=== PATIENT | male | born 1965 | race Caucasian/White ===

== ENCOUNTER 2018-04-20 13:58 | Inpatient (IN) | payer OTHER ==
[~2018-04-20] VITALS: Ht 172.7 cm; Wt 73.6 kg
[2018-04-20] MEDS ORDERED: SODIUM CHLORIDE 0.9% 1,000ML IVBOLUS ONE ×2 (14:30→17:00)
[2018-04-20] MEDS ORDERED: AMPICILLIN/SULBACTAM 3 GM in SODIUM CHLORIDE 0.9% 100 ML IV ONE (14:30)
[2018-04-20] MEDS ORDERED: SODIUM CHLORIDE FLUSH 10ML SYR IVF ONE (14:30)
[2018-04-20 15:00] LABS: MEAN CORPUSCULAR HEMOGLOBIN 29.2 pg (27.5-34.5); MEAN CORPUSCULAR HGB CONC 33.3 g/dL (33.2-36.2); MEAN CORPUSCULAR VOLUME 87.6 fL (81-97); PLATELET COUNT 311 x10^3/uL (130-400); RED BLOOD COUNT 4.37 x10^6/uL (4.38-5.82); RED CELL DISTRIBUTION WIDTH 17.1 % (9.4-14.8)
[2018-04-20] MEDS ORDERED: ACETAMINOPHEN 325 MG TABLET PO ONE (15:00)
[2018-04-20] MEDS ORDERED: PLEASE ENTER ALLERGIES MC SCH (15:00)
[2018-04-20 15:11] LABS: ALANINE AMINOTRANSFERASE 32 U/L (12-78); ALBUMIN 2.4 g/dL (3.4-5.0); ANION GAP 9 mmol/L (5-15); CALCIUM 9.4 mg/dL (8.5-10.1); CHLORIDE 96 mmol/L (98-107)
[2018-04-20 15:14] LABS: ALKALINE PHOSPHATASE 92 U/L (45-117); BILIRUBIN,TOTAL 0.8 mg/dL (0.2-1.0); CREATININE 1.04 mg/dL (0.7-1.3); TOTAL PROTEIN 7.1 g/dL (6.4-8.2)
[2018-04-20] MEDS ORDERED: IBUPROFEN 200 MG TABLET ONE (15:18)
[2018-04-20] MEDS ORDERED: IBUPROFEN 200 MG TABLET PO ONE (15:30)
[2018-04-20] MEDS ORDERED: VANCOMYCIN PER PHARMACY MC PRN ×2 (15:30→16:30)
[2018-04-20] MEDS ORDERED: VANCOMYCIN 1,600 MG in SODIUM CHLORIDE 0.9% 250 ML IV ONE (15:30)
[2018-04-20] MEDS ORDERED: METHADONE PO (15:31)
[2018-04-20] MEDS ORDERED: ASPI-621 PO (15:31)
[2018-04-20] MEDS ORDERED: CLON2TAB PO (15:31)
[2018-04-20] MEDS ORDERED: QUET400T4 PO (15:31)
[2018-04-20 15:37] LABS: INTERNATIONAL NORMALIZED RATIO 1.2 (0.93-1.1)
[2018-04-20 15:38] LABS: PROTHROMBIN TIME 12.4 Seconds (9.6-11.5)
[2018-04-20 15:39] LABS: MD YES
[2018-04-20 15:44] LABS: BAND#(MANUAL) 4.13 x10^3/uL; BANDS%(MANUAL) 14 % (0-7); LYMPH#(MANUAL) 0.89 x10^3/uL (1-3.4); LYMPHS% (MANUAL) 3 % (22-44); SEGS% (MANUAL) 80 % (42-75)
[2018-04-20 15:45] LABS: MONOS#(MANUAL) 0.89 x10^3/uL (0.3-2.7); MONOS% (MANUAL) 3 % (2-9)
[2018-04-20 15:47] LABS: <PLATELET ESTIMATE> ADEQUATE; <PLT MORPHOLOGY> NORMAL PLT MORPH; ANISOCYTOSIS 1+; PMNS WITH VACUOLES 1+; TOXIC GRAN 1+
[2018-04-20] MEDS ORDERED: OMNIPAQUE 350 MG/ML, 100ML BOTTLE ONE (16:15)
[2018-04-20] MEDS ORDERED: LABETALOL 5MG/ML, 20ML IVPush PRN (16:30)
[2018-04-20] MEDS ORDERED: BISACODYL 10 MG SUPP PR PRN (16:30)
[2018-04-20] MEDS ORDERED: POLYETHYLENE GLYCOL 17 GM PACKET PO PRN (16:30)
[2018-04-20] MEDS ORDERED: ONDANSETRON ODT 4 MG PO PRN (16:30)
[2018-04-20] MEDS ORDERED: DOCUSATE 100 MG CAPSULE PO PRN (16:30)
[2018-04-20] MEDS ORDERED: METHADONE 40 MG TABLET.SOL PO PRN (16:30)
[2018-04-20] MEDS ORDERED: ONDANSETRON 2MG/ML, 2ML IVPush PRN (16:30)
[2018-04-20] MEDS ORDERED: hydrALAzine 20 MG/ML, 1ML IVPush PRN (16:30)
[2018-04-20 17:03] LABS: HEMOGLOBIN A1C 6.2 % (4.2-6.3)
[2018-04-20] MEDS ORDERED: PHARMACOKINETIC CONSULTATION MC ONE (18:00)
[2018-04-20] MEDS ORDERED: PHARMACOKINETIC MONITORING MC PRN (18:00)
[2018-04-20] MEDS: NOREPINEPHRINE 4 MG in SODIUM CHLORIDE 0.9% 246 ML IV PRN (18:20)
[2018-04-20] MEDS ORDERED: SODIUM CHLORIDE 0.9% 1,000 ML IV ONE (19:00)
[2018-04-20] MEDS ORDERED: HEPARIN 5,000 UNITS/ML, 1ML ONE (19:50)
[2018-04-20] MEDS ORDERED: NICOTINE 14MG/24 HR PATCH.TD24 ONE (19:50)
[2018-04-20] MEDS: NICOTINE 14MG/24 HR PATCH.TD24 TD SCH (19:51)
[2018-04-20] MEDS: HEPARIN 5,000 UNITS/ML, 1ML SQ SCH (19:51)
[2018-04-20] MEDS: AMPICILLIN/SULBACTAM 3 GM in SODIUM CHLORIDE 0.9% 100 ML IV SCH (22:22)
[2018-04-20] MEDS: QUETIAPINE 200 MG TABLET PO SCH (22:24)
[2018-04-21] MEDS: SODIUM CHLORIDE 0.9% 1,000 ML IV SCH ×4 (01:04→21:22)
[2018-04-21] MEDS: HEPARIN 5,000 UNITS/ML, 1ML SQ SCH ×2 (01:49→09:21)
[2018-04-21] MEDS: AMPICILLIN/SULBACTAM 3 GM in SODIUM CHLORIDE 0.9% 100 ML IV SCH ×4 (03:18→21:22)
[2018-04-21 04:00] VITALS: BP 95/65
[2018-04-21 04:23] LABS: MEAN CORPUSCULAR HEMOGLOBIN 29.6 pg (27.5-34.5); MEAN CORPUSCULAR HGB CONC 33.7 g/dL (33.2-36.2); MEAN CORPUSCULAR VOLUME 87.7 fL (81-97); MEAN PLATELET VOLUME 7.9 fL (7.4-10.4); PLATELET COUNT 267 x10^3/uL (130-400); RED BLOOD COUNT 3.71 x10^6/uL (4.38-5.82); RED CELL DISTRIBUTION WIDTH 16.8 % (9.4-14.8)
[2018-04-21 04:24] LABS: MD YES
[2018-04-21 04:35] LABS: <PLATELET ESTIMATE> ADEQUATE; <PLT MORPHOLOGY> NORMAL PLT MORPH; <RBC MORPHOLOGY> NORMAL; ANION GAP 4 mmol/L (5-15); BAND#(MANUAL) 3.41 x10^3/uL; BANDS%(MANUAL) 16 % (0-7); CALCIUM 7.7 mg/dL (8.5-10.1); CHLORIDE 110 mmol/L (98-107); CREATININE 0.75 mg/dL (0.7-1.3); LYMPH#(MANUAL) 0.43 x10^3/uL (1-3.4); LYMPHS% (MANUAL) 2 % (22-44); MONOS#(MANUAL) 0.64 x10^3/uL (0.3-2.7); MONOS% (MANUAL) 3 % (2-9); SEG#(MANUAL) 16.83 x10^3/uL (1.8-6.8); SEGS% (MANUAL) 79 % (42-75)
[2018-04-21] MEDS ORDERED: CATHFLO-ALTEPLASE 2 MG/2 ML CATHFLUSH ONE (06:00)
[2018-04-21] MEDS: NOREPINEPHRINE 4 MG in SODIUM CHLORIDE 0.9% 246 ML IV PRN ×2 (06:46→17:48)
[2018-04-21] MEDS: ASPIRIN 81 MG TABLET EC PO SCH (09:20)
[2018-04-21] MEDS: CLINDAMYCIN PMX 900MG/50ML 50 ML IV SCH ×2 (12:39→20:54)
[2018-04-21] MEDS ORDERED: HEPARIN 5,000 UNITS/ML, 1ML IV ONE (13:30)
[2018-04-21] MEDS: VANCOMYCIN 1,500 MG in SODIUM CHLORIDE 0.9% 250 ML IV SCH (13:31)
[2018-04-21] MEDS: HEPARIN 25,000 UNITS/500ML PMX 500 ML IV PRN (13:50)
[2018-04-21 15:32] LABS: AMPHETAMINE SCREEN, URINE Negative (Negative); BARBITURATE SCREEN, URINE Negative (Negative); BENZODIAZEPINE SCREEN, URINE Positive (Negative); CANNABINOID SCREEN, URINE Negative (Negative); COCAINE SCREEN, URINE Negative (Negative); METHADONE SCREEN, URINE Positive (Negative); OPIATE SCREEN, URINE Negative (Negative)
[2018-04-21] MEDS: NICOTINE 14MG/24 HR PATCH.TD24 TD SCH (20:00)
[2018-04-21] MEDS: HEPARIN 5,000 UNITS/ML, 1ML IV PRN (21:22)
[2018-04-21] MEDS ORDERED: KETOROLAC 30 MG/1 ML ONE (22:06)
[2018-04-21] MEDS: KETOROLAC 30 MG/1 ML IVPush PRN (23:57)
[2018-04-22] MEDS: QUETIAPINE 200 MG TABLET PO SCH (00:45)
[2018-04-22] MEDS: AMPICILLIN/SULBACTAM 3 GM in SODIUM CHLORIDE 0.9% 100 ML IV SCH ×4 (03:20→21:22)
[2018-04-22] MEDS: CLINDAMYCIN PMX 900MG/50ML 50 ML IV SCH ×4 (03:44→19:57)
[2018-04-22] MEDS: SODIUM CHLORIDE 0.9% 1,000 ML IV SCH ×2 (03:45→10:30)
[2018-04-22 03:54] LABS: MEAN CORPUSCULAR HGB CONC 33.2 g/dL (33.2-36.2); MEAN CORPUSCULAR VOLUME 87.5 fL (81-97); MEAN PLATELET VOLUME 8.2 fL (7.4-10.4); PLATELET COUNT 251 x10^3/uL (130-400); RED BLOOD COUNT 3.36 x10^6/uL (4.38-5.82); RED CELL DISTRIBUTION WIDTH 17.3 % (9.4-14.8)
[2018-04-22 04:00] VITALS: BP 99/54
[2018-04-22 04:04] LABS: ALANINE AMINOTRANSFERASE 303 U/L (12-78); ALBUMIN 1.4 g/dL (3.4-5.0); ANION GAP 7 mmol/L (5-15); CALCIUM 7.6 mg/dL (8.5-10.1); CHLORIDE 108 mmol/L (98-107); CREATININE 0.57 mg/dL (0.7-1.3)
[2018-04-22 04:06] LABS: ALKALINE PHOSPHATASE 326 U/L (45-117); BILIRUBIN,TOTAL 0.6 mg/dL (0.2-1.0); TOTAL PROTEIN 4.8 g/dL (6.4-8.2)
[2018-04-22 04:23] LABS: MD YES
[2018-04-22 04:24] LABS: BAND#(MANUAL) 0.87 x10^3/uL; BANDS%(MANUAL) 5 % (0-7); EOS#(MANUAL) 0.17 x10^3/uL (0.0-0.4); EOS% (MANUAL) 1 % (1-7); LYMPH#(MANUAL) 0.87 x10^3/uL (1-3.4); LYMPHS% (MANUAL) 5 % (22-44); METAMYELOCYTES# (MANUAL) 0.17 x10^3/uL (0-0); METAMYELOCYTES% (MANUAL) 1 % (0-1); MONOS#(MANUAL) 0.17 x10^3/uL (0.3-2.7); MONOS% (MANUAL) 1 % (2-9); SEG#(MANUAL) 15.05 x10^3/uL (1.8-6.8); SEGS% (MANUAL) 87 % (42-75)
[2018-04-22 04:25] LABS: <PLATELET ESTIMATE> ADEQUATE; <PLT MORPHOLOGY> NORMAL PLT MORPH; ANISOCYTOSIS 1+; OVALOCYTES 1+; PMNS WITH VACUOLES 1+
[2018-04-22] MEDS: HEPARIN 5,000 UNITS/ML, 1ML IV PRN ×3 (05:08→20:29)
[2018-04-22] MEDS: VANCOMYCIN 1,500 MG in SODIUM CHLORIDE 0.9% 250 ML IV SCH (06:12)
[2018-04-22] MEDS: NOREPINEPHRINE 4 MG in SODIUM CHLORIDE 0.9% 246 ML IV PRN (06:12)
[2018-04-22] MEDS ORDERED: POTASSIUM PHOSPHATE 44 MEQ in SODIUM CHLORIDE 0.9% 500 ML IV ONE (08:30)
[2018-04-22] MEDS ORDERED: MAGNESIUM SULFATE PMX 2GM/50ML 50 ML IV ONE (08:30)
[2018-04-22] MEDS: ASPIRIN 81 MG TABLET EC PO SCH (10:29)
[2018-04-22] MEDS: HEPARIN 25,000 UNITS/500ML PMX 500 ML IV PRN (13:05)
[2018-04-22] MEDS ORDERED: WARFARIN 5 MG TABLET PO-COUM ONE (19:54)
[2018-04-22] MEDS: NICOTINE 14MG/24 HR PATCH.TD24 TD SCH (19:58)
[2018-04-22] MEDS ORDERED: WARFARIN 5 MG TABLET PO-COUM SCH (20:00)
[2018-04-22 20:09] LABS: INTERNATIONAL NORMALIZED RATIO 1.33 (0.93-1.1); PROTHROMBIN TIME 13.8 Seconds (9.6-11.5)
[2018-04-22] MEDS: QUETIAPINE 100MG TABLET PO SCH (21:23)
[2018-04-23] MEDS: SODIUM CHLORIDE 0.9% 1,000 ML IV SCH ×3 (00:09→06:20)
[2018-04-23] MEDS: VANCOMYCIN 1,500 MG in SODIUM CHLORIDE 0.9% 250 ML IV SCH (00:57)
[2018-04-23 02:34] LABS: MEAN CORPUSCULAR HEMOGLOBIN 29.4 pg (27.5-34.5); MEAN CORPUSCULAR HGB CONC 33.6 g/dL (33.2-36.2); MEAN CORPUSCULAR VOLUME 87.3 fL (81-97); PLATELET COUNT 291 x10^3/uL (130-400); RED BLOOD COUNT 3.34 x10^6/uL (4.38-5.82); RED CELL DISTRIBUTION WIDTH 17.2 % (9.4-14.8)
[2018-04-23 02:43] LABS: INTERNATIONAL NORMALIZED RATIO 1.35 (0.93-1.1)
[2018-04-23 02:46] LABS: ANION GAP 8 mmol/L (5-15); CALCIUM 7.4 mg/dL (8.5-10.1); CHLORIDE 106 mmol/L (98-107); CREATININE 0.79 mg/dL (0.7-1.3)
[2018-04-23 02:49] LABS: MD YES
[2018-04-23 02:52] LABS: BANDS%(MANUAL) 6 % (0-7); LYMPH#(MANUAL) 1.84 x10^3/uL (1-3.4); LYMPHS% (MANUAL) 11 % (22-44); MONOS#(MANUAL) 0.17 x10^3/uL (0.3-2.7); MONOS% (MANUAL) 1 % (2-9); SEG#(MANUAL) 13.69 x10^3/uL (1.8-6.8); SEGS% (MANUAL) 82 % (42-75)
[2018-04-23 02:53] LABS: ANISOCYTOSIS 1+; PMNS WITH VACUOLES 1+; POLYCHROMASIA 1+; TOXIC GRAN 1+
[2018-04-23 02:54] LABS: <PLATELET ESTIMATE> ADEQUATE; <PLT MORPHOLOGY> NORMAL PLT MORPH
[2018-04-23] MEDS: AMPICILLIN/SULBACTAM 3 GM in SODIUM CHLORIDE 0.9% 100 ML IV SCH ×4 (03:30→23:00)
[2018-04-23] MEDS: HEPARIN 25,000 UNITS/500ML PMX 500 ML IV PRN (03:39)
[2018-04-23] MEDS: HEPARIN 5,000 UNITS/ML, 1ML IV PRN (03:39)
[2018-04-23] MEDS: CLINDAMYCIN PMX 900MG/50ML 50 ML IV SCH ×3 (04:06→20:35)
[2018-04-23] MEDS ORDERED: WARFARIN MECH. VALVE PROTOCOL 2.5 to 3.5 XX PRN (07:30)
[2018-04-23 07:33] LABS: ALANINE AMINOTRANSFERASE 395 U/L (12-78); ALBUMIN 1.3 g/dL (3.4-5.0)
[2018-04-23 07:35] LABS: ALKALINE PHOSPHATASE 418 U/L (45-117); BILIRUBIN,TOTAL 0.7 mg/dL (0.2-1.0); TOTAL PROTEIN 4.8 g/dL (6.4-8.2)
[2018-04-23] MEDS: KETOROLAC 30 MG/1 ML IVPush PRN ×2 (07:59→17:39)
[2018-04-23] MEDS ORDERED: ARGATROBAN/NACL 50 MG/50 ML 50 ML IV SCH ×3 (09:00→17:30)
[2018-04-23] MEDS: ASPIRIN 81 MG TABLET EC PO SCH (09:18)
[2018-04-23] MEDS: WARFARIN MODERAT DOSE PROTOCOL XX SCH (12:00)
[2018-04-23] MEDS ORDERED: WARFARIN 7.5 MG TABLET PO-COUM SCH (18:00)
[2018-04-23] MEDS: ARGATROBAN 250 MG in SODIUM CHLORIDE 0.9% 247.5 ML IV SCH (19:48)
[2018-04-23] MEDS ORDERED: ARGATROBAN 250 MG in SODIUM CHLORIDE 0.9% 250 ML IV SCH (20:00)
[2018-04-23] MEDS: QUETIAPINE 100MG TABLET PO SCH (20:36)
[2018-04-23] MEDS: NICOTINE 14MG/24 HR PATCH.TD24 TD SCH (20:36)
[2018-04-24] MEDS: KETOROLAC 30 MG/1 ML IVPush PRN ×3 (00:14→18:08)
[2018-04-24 04:25] LABS: MEAN CORPUSCULAR HEMOGLOBIN 28.7 pg (27.5-34.5); MEAN CORPUSCULAR HGB CONC 33.4 g/dL (33.2-36.2); MEAN PLATELET VOLUME 7.6 fL (7.4-10.4); PLATELET COUNT 332 x10^3/uL (130-400); RED BLOOD COUNT 3.25 x10^6/uL (4.38-5.82); RED CELL DISTRIBUTION WIDTH 17.9 % (9.4-14.8)
[2018-04-24 04:36] LABS: ALANINE AMINOTRANSFERASE 436 U/L (12-78); ALBUMIN 1.2 g/dL (3.4-5.0); ANION GAP 8 mmol/L (5-15); CALCIUM 7.4 mg/dL (8.5-10.1); CHLORIDE 109 mmol/L (98-107); CREATININE 0.61 mg/dL (0.7-1.3)
[2018-04-24 04:38] LABS: ALKALINE PHOSPHATASE 521 U/L (45-117); BILIRUBIN,TOTAL 0.6 mg/dL (0.2-1.0)
[2018-04-24 04:39] LABS: INTERNATIONAL NORMALIZED RATIO 4.03 (0.93-1.1)
[2018-04-24 04:52] LABS: PROTHROMBIN TIME 40.8 Seconds (9.6-11.5)
[2018-04-24] MEDS: AMPICILLIN/SULBACTAM 3 GM in SODIUM CHLORIDE 0.9% 100 ML IV SCH ×3 (05:01→17:30)
[2018-04-24] MEDS: CLINDAMYCIN PMX 900MG/50ML 50 ML IV SCH ×3 (05:01→23:26)
[2018-04-24 05:38] LABS: MD YES
[2018-04-24 05:39] LABS: LYMPH#(MANUAL) 1.48 x10^3/uL (1-3.4); LYMPHS% (MANUAL) 10 % (22-44); METAMYELOCYTES% (MANUAL) 2 % (0-1); MYELOCYTES# (MANUAL) 0.15 x10^3/uL (0-0); MYELOCYTES% (MANUAL) 1 % (0-0); SEG#(MANUAL) 11.84 x10^3/uL (1.8-6.8); SEGS% (MANUAL) 80 % (42-75)
[2018-04-24 05:40] LABS: ANISOCYTOSIS 1+; BAND#(MANUAL) 0.89 x10^3/uL; BANDS%(MANUAL) 6 % (0-7); MONOS#(MANUAL) 0.15 x10^3/uL (0.3-2.7); MONOS% (MANUAL) 1 % (2-9); OVALOCYTES 1+
[2018-04-24 05:41] LABS: <PLATELET ESTIMATE> ADEQUATE; <PLT MORPHOLOGY> NORMAL PLT MORPH; PMNS WITH VACUOLES 1+; POLYCHROMASIA 1+; TOXIC GRAN 1+
[2018-04-24 07:58] VITALS: BP 103/64
[2018-04-24] MEDS ORDERED: HOLD COUMADIN MC PRN (08:00)
[2018-04-24] MEDS: METHADONE 10 MG TABLET PO SCH (11:17)
[2018-04-24 11:31] VITALS: BP 114/72
[2018-04-24] MEDS: WARFARIN MODERAT DOSE PROTOCOL XX SCH (12:00)
[2018-04-24] MEDS ORDERED: GADOBUTROL 10 MMOL/10 ML PFS ONE (14:04)
[2018-04-24] MEDS: LINEZOLID PMX 600MG/300ML 300 ML IV SCH (15:40)
[2018-04-24] MEDS ORDERED: WARFARIN 7.5 MG TABLET PO-COUM ONE (18:00)
[2018-04-24] MEDS: NICOTINE 14MG/24 HR PATCH.TD24 TD SCH (20:20)
[2018-04-24] MEDS: QUETIAPINE 100MG TABLET PO SCH (20:21)
[2018-04-25] MEDS: AMPICILLIN/SULBACTAM 3 GM in SODIUM CHLORIDE 0.9% 100 ML IV SCH ×5 (00:33→23:08)
[2018-04-25] MEDS: KETOROLAC 30 MG/1 ML IVPush PRN (01:48)
[2018-04-25 04:47] LABS: MEAN CORPUSCULAR HEMOGLOBIN 29.5 pg (27.5-34.5); MEAN CORPUSCULAR VOLUME 86.8 fL (81-97); MEAN PLATELET VOLUME 7.9 fL (7.4-10.4); PLATELET COUNT 329 x10^3/uL (130-400); RED BLOOD COUNT 3.16 x10^6/uL (4.38-5.82); RED CELL DISTRIBUTION WIDTH 17.5 % (9.4-14.8)
[2018-04-25] MEDS: LINEZOLID PMX 600MG/300ML 300 ML IV SCH ×2 (04:53→16:15)
[2018-04-25 04:56] LABS: CHLORIDE 107 mmol/L (98-107)
[2018-04-25 04:58] LABS: INTERNATIONAL NORMALIZED RATIO 4.51 (0.93-1.1); PROTHROMBIN TIME 45.5 Seconds (9.6-11.5)
[2018-04-25 05:03] LABS: ALANINE AMINOTRANSFERASE 414 U/L (12-78); ALBUMIN 1.3 g/dL (3.4-5.0); ALKALINE PHOSPHATASE 556 U/L (45-117); ANION GAP 6 mmol/L (5-15); BILIRUBIN,TOTAL 0.5 mg/dL (0.2-1.0); CALCIUM 7.6 mg/dL (8.5-10.1); CREATININE 0.53 mg/dL (0.7-1.3); TOTAL PROTEIN 5.1 g/dL (6.4-8.2)
[2018-04-25] MEDS: ARGATROBAN 250 MG in SODIUM CHLORIDE 0.9% 247.5 ML IV SCH (05:34)
[2018-04-25 05:44] LABS: MD YES
[2018-04-25 05:49] LABS: ANISOCYTOSIS 1+; BANDS%(MANUAL) 4 % (0-7); LYMPH#(MANUAL) 1.41 x10^3/uL (1-3.4); LYMPHS% (MANUAL) 8 % (22-44); METAMYELOCYTES# (MANUAL) 1.06 x10^3/uL (0-0); METAMYELOCYTES% (MANUAL) 6 % (0-1); MYELOCYTES% (MANUAL) 4 % (0-0); POLYCHROMASIA 1+; SEG#(MANUAL) 13.73 x10^3/uL (1.8-6.8); SEGS% (MANUAL) 78 % (42-75)
[2018-04-25 05:50] LABS: <PLATELET ESTIMATE> ADEQUATE; <PLT MORPHOLOGY> NORMAL PLT MORPH; PMNS WITH VACUOLES 1+; TOXIC GRAN 1+
[2018-04-25] MEDS: METHADONE 10 MG TABLET PO SCH ×2 (07:20→20:14)
[2018-04-25] MEDS: OXYcodone IR 5MG TABLET PO PRN ×3 (07:36→17:39)
[2018-04-25] MEDS: CLINDAMYCIN PMX 900MG/50ML 50 ML IV SCH ×2 (10:35→18:13)
[2018-04-25] MEDS: WARFARIN MODERAT DOSE PROTOCOL XX SCH (11:59)
[2018-04-25] MEDS: NICOTINE 14MG/24 HR PATCH.TD24 TD SCH (20:13)
[2018-04-25] MEDS: QUETIAPINE 100MG TABLET PO SCH (21:07)
[2018-04-25] MEDS: TEMAZEPAM 15 MG CAPSULE PO PRN (23:38)
[2018-04-26] MEDS: CLINDAMYCIN PMX 900MG/50ML 50 ML IV SCH ×3 (02:18→18:44)
[2018-04-26] MEDS: OXYcodone IR 5MG TABLET PO PRN ×2 (04:21→18:46)
[2018-04-26] MEDS: LINEZOLID PMX 600MG/300ML 300 ML IV SCH ×2 (04:21→16:40)
[2018-04-26 04:44] LABS: MEAN CORPUSCULAR HEMOGLOBIN 28.4 pg (27.5-34.5); MEAN CORPUSCULAR HGB CONC 33.2 g/dL (33.2-36.2); MEAN CORPUSCULAR VOLUME 85.6 fL (81-97); MEAN PLATELET VOLUME 7.7 fL (7.4-10.4); PLATELET COUNT 427 x10^3/uL (130-400); RED BLOOD COUNT 3.67 x10^6/uL (4.38-5.82); RED CELL DISTRIBUTION WIDTH 17.6 % (9.4-14.8)
[2018-04-26 04:48] LABS: INTERNATIONAL NORMALIZED RATIO 1.9 (0.93-1.1); PROTHROMBIN TIME 19.5 Seconds (9.6-11.5)
[2018-04-26 04:51] LABS: ALBUMIN 1.5 g/dL (3.4-5.0); ANION GAP 8 mmol/L (5-15); CALCIUM 7.9 mg/dL (8.5-10.1); CHLORIDE 105 mmol/L (98-107)
[2018-04-26 04:55] LABS: ALANINE AMINOTRANSFERASE 286 U/L (12-78); ALKALINE PHOSPHATASE 547 U/L (45-117); BILIRUBIN,TOTAL 0.3 mg/dL (0.2-1.0); CREATININE 0.79 mg/dL (0.7-1.3); TOTAL PROTEIN 6.3 g/dL (6.4-8.2)
[2018-04-26 04:56] LABS: MD YES
[2018-04-26 04:58] LABS: ANISOCYTOSIS 1+; BAND#(MANUAL) 0.97 x10^3/uL; BANDS%(MANUAL) 5 % (0-7); BASOS#(MANUAL) 0.19 x10^3/uL (0-0.1); BASOS% (MANUAL) 1 % (0-1); LYMPH#(MANUAL) 2.91 x10^3/uL (1-3.4); LYMPHS% (MANUAL) 15 % (22-44); METAMYELOCYTES# (MANUAL) 0.78 x10^3/uL (0-0); METAMYELOCYTES% (MANUAL) 4 % (0-1); MONOS#(MANUAL) 1.16 x10^3/uL (0.3-2.7); MONOS% (MANUAL) 6 % (2-9); MYELOCYTES# (MANUAL) 0.78 x10^3/uL (0-0); MYELOCYTES% (MANUAL) 4 % (0-0); POLYCHROMASIA 1+; SEG#(MANUAL) 12.61 x10^3/uL (1.8-6.8); SEGS% (MANUAL) 65 % (42-75)
[2018-04-26 04:59] LABS: <PLATELET ESTIMATE> ADEQUATE; <PLT MORPHOLOGY> NORMAL PLT MORPH
[2018-04-26] MEDS: AMPICILLIN/SULBACTAM 3 GM in SODIUM CHLORIDE 0.9% 100 ML IV SCH (07:30)
[2018-04-26] MEDS ORDERED: PIPERACILLIN/TAZO 0.75 GM in SODIUM CHLORIDE 0.9% 50 ML IV SCH (07:30)
[2018-04-26] MEDS: KETOROLAC 30 MG/1 ML IVPush PRN ×2 (08:03→15:47)
[2018-04-26] MEDS: METHADONE 10 MG TABLET PO SCH ×2 (08:30→20:46)
[2018-04-26] MEDS: PIPERACILLIN/TAZO 2.25 GM in SODIUM CHLORIDE 0.9% 50 ML IV SCH ×3 (08:30→21:51)
[2018-04-26] MEDS: ARGATROBAN 250 MG in SODIUM CHLORIDE 0.9% 247.5 ML IV SCH ×2 (10:13→20:47)
[2018-04-26] MEDS: WARFARIN MODERAT DOSE PROTOCOL XX SCH (12:00)
[2018-04-26] MEDS: QUETIAPINE 100MG TABLET PO SCH (20:46)
[2018-04-26] MEDS: NICOTINE 14MG/24 HR PATCH.TD24 TD SCH (20:49)
[2018-04-26] MEDS: TEMAZEPAM 15 MG CAPSULE PO PRN (23:50)
[2018-04-27] MEDS: CLINDAMYCIN PMX 900MG/50ML 50 ML IV SCH (02:50)
[2018-04-27] MEDS: OXYcodone IR 5MG TABLET PO PRN ×3 (03:43→22:12)
[2018-04-27] MEDS: PIPERACILLIN/TAZO 2.25 GM in SODIUM CHLORIDE 0.9% 50 ML IV SCH (03:46)
[2018-04-27] MEDS: LINEZOLID PMX 600MG/300ML 300 ML IV SCH ×2 (05:13→16:25)
[2018-04-27 05:21] LABS: MEAN CORPUSCULAR HEMOGLOBIN 28.3 pg (27.5-34.5); MEAN CORPUSCULAR HGB CONC 32.8 g/dL (33.2-36.2); MEAN CORPUSCULAR VOLUME 86.1 fL (81-97); MEAN PLATELET VOLUME 7.5 fL (7.4-10.4); PLATELET COUNT 382 x10^3/uL (130-400); RED BLOOD COUNT 3.12 x10^6/uL (4.38-5.82); RED CELL DISTRIBUTION WIDTH 18.5 % (9.4-14.8)
[2018-04-27 05:29] LABS: INTERNATIONAL NORMALIZED RATIO 2.16 (0.93-1.1); PROTHROMBIN TIME 22.2 Seconds (9.6-11.5)
[2018-04-27 05:55] LABS: MD YES
[2018-04-27 05:57] LABS: BAND#(MANUAL) 0.73 x10^3/uL; BANDS%(MANUAL) 5 % (0-7); EOS#(MANUAL) 0.29 x10^3/uL (0.0-0.4); EOS% (MANUAL) 2 % (1-7); LYMPH#(MANUAL) 1.45 x10^3/uL (1-3.4); LYMPHS% (MANUAL) 10 % (22-44); METAMYELOCYTES# (MANUAL) 0.44 x10^3/uL (0-0); METAMYELOCYTES% (MANUAL) 3 % (0-1); MONOS#(MANUAL) 0.73 x10^3/uL (0.3-2.7); MONOS% (MANUAL) 5 % (2-9); MYELOCYTES# (MANUAL) 0.15 x10^3/uL (0-0); MYELOCYTES% (MANUAL) 1 % (0-0)
[2018-04-27 05:58] LABS: ANISOCYTOSIS 1+; POLYCHROMASIA 1+
[2018-04-27 05:59] LABS: <PLATELET ESTIMATE> ADEQUATE; <PLT MORPHOLOGY> NORMAL PLT MORPH; TOXIC GRAN 1+
[2018-04-27 06:00] LABS: REACTIVE LYMPHS # (MANUAL) 0.15 x10^3/uL (0-0); REACTIVE LYMPHS % (MANUAL) 1 % (0-0); SEG#(MANUAL) 10.59 x10^3/uL (1.8-6.8); SEGS% (MANUAL) 73 % (42-75)
[2018-04-27] MEDS ORDERED: FENTANYL PF 250 MCG/5ML ONE (08:36)
[2018-04-27] MEDS ORDERED: MIDAZOLAM 1 MG/ML, 2ML ONE (08:36)
[2018-04-27] MEDS ORDERED: PROPOFOL 10 MG/ML, 20ML ONE (08:45)
[2018-04-27] MEDS: METHADONE 10 MG TABLET PO SCH ×3 (09:00→21:06)
[2018-04-27] MEDS ORDERED: HYDROmorphone 2 MG/ML, 1ML ONE (09:28)
[2018-04-27] MEDS ORDERED: OXYcodone 5 MG/5 ML ORAL.SOL UDC ONE (09:28)
[2018-04-27] MEDS ORDERED: FENTANYL PF 100 MCG/2ML ONE (09:28)
[2018-04-27] MEDS: HYDROmorphone 1 MG/ML, 1ML IV PRN ×4 (09:30→09:47)
[2018-04-27] MEDS: FENTANYL PF 100 MCG/2ML IV PRN ×2 (09:32→09:43)
[2018-04-27] MEDS ORDERED: LABETALOL 5MG/ML, 20ML IV PRN (10:00)
[2018-04-27] MEDS ORDERED: EPHEDRINE 50 MG/ML, 1ML IVPush PRN (10:00)
[2018-04-27] MEDS ORDERED: MIDAZOLAM 1 MG/ML, 2ML IV PRN (10:00)
[2018-04-27] MEDS ORDERED: OXYcodone 5 MG/5 ML ORAL.SOL UDC PO PRN (10:00)
[2018-04-27] MEDS: WARFARIN MODERAT DOSE PROTOCOL XX SCH (12:00)
[2018-04-27] MEDS: PIPERACILLIN/TAZO/PMX 2.25GM 50 ML IV SCH ×2 (12:35→18:10)
[2018-04-27 13:41] VITALS: BP 110/60
[2018-04-27] MEDS ORDERED: WARFARIN 7.5 MG TABLET PO-COUM ONE (18:00)
[2018-04-27] MEDS ORDERED: QUETIAPINE 25MG TABLET ONE (20:07)
[2018-04-27] MEDS: NICOTINE 14MG/24 HR PATCH.TD24 TD SCH (20:11)
[2018-04-27] MEDS: QUETIAPINE 100MG TABLET PO SCH (20:11)
[2018-04-27 20:27] VITALS: BP 147/79
[2018-04-28] MEDS: PIPERACILLIN/TAZO/PMX 2.25GM 50 ML IV SCH ×4 (00:31→18:28)
[2018-04-28 00:45] VITALS: BP 113/64
[2018-04-28] MEDS: LINEZOLID PMX 600MG/300ML 300 ML IV SCH ×2 (04:36→16:41)
[2018-04-28] MEDS: OXYcodone IR 5MG TABLET PO PRN ×3 (04:36→18:28)
[2018-04-28] MEDS: ASPIRIN 81 MG TABLET EC PO SCH (04:36)
[2018-04-28 06:27] LABS: INTERNATIONAL NORMALIZED RATIO 2.08 (0.93-1.1); PROTHROMBIN TIME 21.4 Seconds (9.6-11.5)
[2018-04-28 07:48] VITALS: BP 102/64
[2018-04-28] MEDS: ARGATROBAN 250 MG in SODIUM CHLORIDE 0.9% 247.5 ML IV SCH (08:54)
[2018-04-28] MEDS: METHADONE 10 MG TABLET PO SCH ×2 (08:54→21:25)
[2018-04-28] MEDS: WARFARIN MODERAT DOSE PROTOCOL XX SCH (12:00)
[2018-04-28 13:11] VITALS: BP 110/61
[2018-04-28] MEDS ORDERED: WARFARIN 10 MG TABLET PO-COUM ONE (18:00)
[2018-04-28 18:59] VITALS: BP 107/66
[2018-04-28] MEDS: QUETIAPINE 100MG TABLET PO SCH (21:24)
[2018-04-28] MEDS: NICOTINE 14MG/24 HR PATCH.TD24 TD SCH (21:27)
[2018-04-29] VITALS (7 sets, daily range): BP systolic 80–106; BP diastolic 41–65
[2018-04-29] MEDS: PIPERACILLIN/TAZO/PMX 2.25GM 50 ML IV SCH ×4 (00:25→18:07)
[2018-04-29] MEDS: OXYcodone IR 5MG TABLET PO PRN ×4 (01:04→18:19)
[2018-04-29] MEDS: LINEZOLID PMX 600MG/300ML 300 ML IV SCH ×2 (03:38→14:59)
[2018-04-29 07:01] LABS: INTERNATIONAL NORMALIZED RATIO 2.62 (0.93-1.1); PROTHROMBIN TIME 26.8 Seconds (9.6-11.5)
[2018-04-29] MEDS: METHADONE 10 MG TABLET PO SCH ×2 (08:55→21:16)
[2018-04-29] MEDS: ARGATROBAN 250 MG in SODIUM CHLORIDE 0.9% 247.5 ML IV SCH (08:56)
[2018-04-29] MEDS: ASPIRIN 81 MG TABLET EC PO SCH (08:59)
[2018-04-29] MEDS: WARFARIN MODERAT DOSE PROTOCOL XX SCH (09:22)
[2018-04-29] MEDS ORDERED: WARFARIN 10 MG TABLET PO-COUM ONE (18:00)
[2018-04-29] MEDS: QUETIAPINE 100MG TABLET PO SCH (21:16)
[2018-04-29] MEDS: NICOTINE 14MG/24 HR PATCH.TD24 TD SCH (21:25)
[2018-04-29] MEDS: TEMAZEPAM 15 MG CAPSULE PO PRN (23:26)
[2018-04-30] MEDS: PIPERACILLIN/TAZO/PMX 2.25GM 50 ML IV SCH ×4 (00:31→18:32)
[2018-04-30] MEDS: OXYcodone IR 5MG TABLET PO PRN ×4 (00:31→18:45)
[2018-04-30] MEDS: LINEZOLID PMX 600MG/300ML 300 ML IV SCH ×2 (03:15→15:09)
[2018-04-30 05:58] LABS: MEAN CORPUSCULAR HEMOGLOBIN 28.7 pg (27.5-34.5); MEAN CORPUSCULAR HGB CONC 33.2 g/dL (33.2-36.2); MEAN CORPUSCULAR VOLUME 86.3 fL (81-97); MEAN PLATELET VOLUME 6.9 fL (7.4-10.4); PLATELET COUNT 400 x10^3/uL (130-400); RED BLOOD COUNT 3.25 x10^6/uL (4.38-5.82); RED CELL DISTRIBUTION WIDTH 17.9 % (9.4-14.8)
[2018-04-30 06:13] LABS: ALBUMIN 1.8 g/dL (3.4-5.0); ANION GAP 4 mmol/L (5-15); CALCIUM 8.8 mg/dL (8.5-10.1); CHLORIDE 104 mmol/L (98-107)
[2018-04-30 06:17] LABS: ALANINE AMINOTRANSFERASE 93 U/L (12-78); ALKALINE PHOSPHATASE 279 U/L (45-117); BILIRUBIN,TOTAL 0.3 mg/dL (0.2-1.0); CREATININE 0.94 mg/dL (0.7-1.3)
[2018-04-30 06:25] LABS: MD YES
[2018-04-30 06:27] LABS: ANISOCYTOSIS 1+; BAND#(MANUAL) 0.28 x10^3/uL; BANDS%(MANUAL) 2 % (0-7); EOS#(MANUAL) 0.14 x10^3/uL (0.0-0.4); EOS% (MANUAL) 1 % (1-7); LYMPH#(MANUAL) 3.04 x10^3/uL (1-3.4); LYMPHS% (MANUAL) 22 % (22-44); METAMYELOCYTES# (MANUAL) 0.28 x10^3/uL (0-0); METAMYELOCYTES% (MANUAL) 2 % (0-1); MONOS#(MANUAL) 0.28 x10^3/uL (0.3-2.7); MONOS% (MANUAL) 2 % (2-9); MYELOCYTES# (MANUAL) 0.14 x10^3/uL (0-0); MYELOCYTES% (MANUAL) 1 % (0-0); SEG#(MANUAL) 9.66 x10^3/uL (1.8-6.8); SEGS% (MANUAL) 70 % (42-75)
[2018-04-30 06:28] LABS: <PLATELET ESTIMATE> ADEQUATE; <PLT MORPHOLOGY> NORMAL PLT MORPH; OVALOCYTES 1+; POLYCHROMASIA 1+; TOXIC GRAN 1+
[2018-04-30] MEDS: ASPIRIN 81 MG TABLET EC PO SCH (06:33)
[2018-04-30 06:40] LABS: INTERNATIONAL NORMALIZED RATIO 4.73 (0.93-1.1); PROTHROMBIN TIME 47.2 Seconds (9.6-11.5)
[2018-04-30 07:46] VITALS: BP 80/47
[2018-04-30] MEDS: ARGATROBAN 250 MG in SODIUM CHLORIDE 0.9% 247.5 ML IV SCH (08:06)
[2018-04-30] MEDS: METHADONE 10 MG TABLET PO SCH ×2 (09:28→21:25)
[2018-04-30] MEDS: WARFARIN MODERAT DOSE PROTOCOL XX SCH (12:00)
[2018-04-30 13:20] VITALS: BP 92/53
[2018-04-30 14:16] LABS: INTERNATIONAL NORMALIZED RATIO 3.33 (0.93-1.1); PROTHROMBIN TIME 33.7 Seconds (9.6-11.5)
[2018-04-30] MEDS ORDERED: WARFARIN 5 MG TABLET PO-COUM ONE (18:00)
[2018-04-30 19:15] VITALS: BP 102/64
[2018-04-30] MEDS: QUETIAPINE 100MG TABLET PO SCH (21:26)
[2018-04-30] MEDS: NICOTINE 14MG/24 HR PATCH.TD24 TD SCH (21:32)
[2018-05-01] MEDS: PIPERACILLIN/TAZO/PMX 2.25GM 50 ML IV SCH ×4 (00:39→20:07)
[2018-05-01] MEDS: OXYcodone IR 5MG TABLET PO PRN ×3 (00:40→15:09)
[2018-05-01 02:00] VITALS: BP 96/60
[2018-05-01] MEDS: LINEZOLID PMX 600MG/300ML 300 ML IV SCH ×2 (03:59→15:11)
[2018-05-01] MEDS: ASPIRIN 81 MG TABLET EC PO SCH (06:31)
[2018-05-01 07:06] LABS: MEAN CORPUSCULAR HGB CONC 33.5 g/dL (33.2-36.2); MEAN CORPUSCULAR VOLUME 86.6 fL (81-97); MEAN PLATELET VOLUME 6.9 fL (7.4-10.4); PLATELET COUNT 439 x10^3/uL (130-400); RED BLOOD COUNT 3.32 x10^6/uL (4.38-5.82); RED CELL DISTRIBUTION WIDTH 18.4 % (9.4-14.8)
[2018-05-01 07:07] VITALS: BP 95/55
[2018-05-01 07:09] LABS: ANION GAP 5 mmol/L (5-15); CALCIUM 8.7 mg/dL (8.5-10.1); CHLORIDE 101 mmol/L (98-107); CREATININE 0.92 mg/dL (0.7-1.3)
[2018-05-01 07:15] LABS: INTERNATIONAL NORMALIZED RATIO 4.27 (0.93-1.1); PROTHROMBIN TIME 42.8 Seconds (9.6-11.5)
[2018-05-01 07:23] LABS: MD YES
[2018-05-01 07:24] LABS: BAND#(MANUAL) 0.21 x10^3/uL; BANDS%(MANUAL) 2 % (0-7); BASOS#(MANUAL) 0.11 x10^3/uL (0-0.1); BASOS% (MANUAL) 1 % (0-1); EOS#(MANUAL) 0.32 x10^3/uL (0.0-0.4); EOS% (MANUAL) 3 % (1-7); LYMPH#(MANUAL) 2.52 x10^3/uL (1-3.4); LYMPHS% (MANUAL) 24 % (22-44); METAMYELOCYTES# (MANUAL) 0.53 x10^3/uL (0-0); METAMYELOCYTES% (MANUAL) 5 % (0-1); MONOS#(MANUAL) 0.53 x10^3/uL (0.3-2.7); MONOS% (MANUAL) 5 % (2-9); MYELOCYTES# (MANUAL) 0.11 x10^3/uL (0-0); MYELOCYTES% (MANUAL) 1 % (0-0); SEGS% (MANUAL) 59 % (42-75)
[2018-05-01 07:25] LABS: <PLATELET ESTIMATE> INCREASED; ANISOCYTOSIS 1+; POLYCHROMASIA 1+; TOXIC GRAN 1+
[2018-05-01 07:26] LABS: LARGE PLATELETS 1+
[2018-05-01] MEDS: METHADONE 10 MG TABLET PO SCH ×2 (09:34→21:04)
[2018-05-01] MEDS: WARFARIN MODERAT DOSE PROTOCOL XX SCH (12:00)
[2018-05-01 15:07] VITALS: BP 96/65
[2018-05-01] MEDS ORDERED: WARFARIN 2.5 MG TABLET PO-COUM ONE (18:00)
[2018-05-01 19:55] VITALS: BP 97/60
[2018-05-01] MEDS: NICOTINE 14MG/24 HR PATCH.TD24 TD SCH (20:07)
[2018-05-01] MEDS: QUETIAPINE 100MG TABLET PO SCH (21:00)
[2018-05-01] MEDS ORDERED: QUETIAPINE 25MG TABLET ONE (21:02)
[2018-05-02 00:13] VITALS: BP 96/60
[2018-05-02] MEDS: OXYcodone IR 5MG TABLET PO PRN ×4 (00:16→18:09)
[2018-05-02] MEDS: PIPERACILLIN/TAZO/PMX 2.25GM 50 ML IV SCH ×4 (01:54→20:55)
[2018-05-02] MEDS: LINEZOLID PMX 600MG/300ML 300 ML IV SCH ×2 (02:56→15:47)
[2018-05-02 04:41] LABS: INTERNATIONAL NORMALIZED RATIO 3.73 (0.93-1.1); PROTHROMBIN TIME 37.6 Seconds (9.6-11.5)
[2018-05-02] MEDS: ASPIRIN 81 MG TABLET EC PO SCH (06:14)
[2018-05-02 07:10] VITALS: BP 93/58
[2018-05-02] MEDS: METHADONE 10 MG TABLET PO SCH ×2 (08:48→20:55)
[2018-05-02 10:32] LABS: MEAN CORPUSCULAR HGB CONC 32.8 g/dL (33.2-36.2); MEAN CORPUSCULAR VOLUME 85.3 fL (81-97); MEAN PLATELET VOLUME 6.8 fL (7.4-10.4); PLATELET COUNT 428 x10^3/uL (130-400); RED BLOOD COUNT 3.57 x10^6/uL (4.38-5.82); RED CELL DISTRIBUTION WIDTH 18.3 % (9.4-14.8)
[2018-05-02 10:45] LABS: MD YES
[2018-05-02 10:47] LABS: BAND#(MANUAL) 0.11 x10^3/uL; BANDS%(MANUAL) 1 % (0-7); EOS#(MANUAL) 0.11 x10^3/uL (0.0-0.4); EOS% (MANUAL) 1 % (1-7); LYMPHS% (MANUAL) 18 % (22-44); METAMYELOCYTES# (MANUAL) 0.11 x10^3/uL (0-0); METAMYELOCYTES% (MANUAL) 1 % (0-1); MONOS#(MANUAL) 0.56 x10^3/uL (0.3-2.7); MONOS% (MANUAL) 5 % (2-9); MYELOCYTES# (MANUAL) 0.11 x10^3/uL (0-0); MYELOCYTES% (MANUAL) 1 % (0-0); SEGS% (MANUAL) 73 % (42-75)
[2018-05-02 10:48] LABS: <PLATELET ESTIMATE> INCREASED; <PLT MORPHOLOGY> NORMAL PLT MORPH; ANISOCYTOSIS 1+; POLYCHROMASIA 1+
[2018-05-02] MEDS: WARFARIN MODERAT DOSE PROTOCOL XX SCH (12:07)
[2018-05-02 12:21] LABS: ANION GAP 4 mmol/L (5-15); CALCIUM 9.2 mg/dL (8.5-10.1); CHLORIDE 102 mmol/L (98-107); CREATININE 0.95 mg/dL (0.7-1.3)
[2018-05-02 13:27] VITALS: BP 96/59
[2018-05-02] MEDS ORDERED: WARFARIN 2.5 MG TABLET PO-COUM ONE (18:00)
[2018-05-02 18:39] VITALS: BP 102/66
[2018-05-02] MEDS: QUETIAPINE 100MG TABLET PO SCH (20:55)
[2018-05-02] MEDS: NICOTINE 14MG/24 HR PATCH.TD24 TD SCH (20:56)
[2018-05-03 01:17] VITALS: BP 105/68
[2018-05-03] MEDS: TEMAZEPAM 15 MG CAPSULE PO PRN (02:40)
[2018-05-03] MEDS: OXYcodone IR 5MG TABLET PO PRN ×4 (02:40→21:02)
[2018-05-03] MEDS: PIPERACILLIN/TAZO/PMX 2.25GM 50 ML IV SCH ×4 (02:40→19:37)
[2018-05-03] MEDS: LINEZOLID PMX 600MG/300ML 300 ML IV SCH ×2 (04:25→14:51)
[2018-05-03 05:23] LABS: INTERNATIONAL NORMALIZED RATIO 3.13 (0.93-1.1); PROTHROMBIN TIME 31.8 Seconds (9.6-11.5)
[2018-05-03 05:25] LABS: ANION GAP 7 mmol/L (5-15); CALCIUM 8.8 mg/dL (8.5-10.1); CHLORIDE 101 mmol/L (98-107); CREATININE 0.87 mg/dL (0.7-1.3)
[2018-05-03 05:27] LABS: BASOPHILS # (AUTO) 0.08 x10^3/uL (0-0.1); BASOPHILS % (AUTO) 1 % (0-1); EOSINOPHILS # (AUTO) 0.23 x10^3/uL (0-0.4); EOSINOPHILS % (AUTO) 2 % (1-7); LYMPHOCYTES # (AUTO) 2.36 x10^3/uL (1-3.4); LYMPHOCYTES % (AUTO) 25 % (22-44); MD NO; MEAN CORPUSCULAR HEMOGLOBIN 29.1 pg (27.5-34.5); MEAN CORPUSCULAR HGB CONC 33.8 g/dL (33.2-36.2); MEAN PLATELET VOLUME 6.8 fL (7.4-10.4); MONOCYTES # (AUTO) 0.66 x10^3/uL (0.2-0.8); MONOCYTES % (AUTO) 7 % (2-9); NEUTROPHILS # (AUTO) 6.16 x10^3/uL (1.8-6.8); NEUTROPHILS % (AUTO) 65 % (42-75); PLATELET COUNT 493 x10^3/uL (130-400); RED BLOOD COUNT 3.35 x10^6/uL (4.38-5.82)
[2018-05-03 07:09] VITALS: BP 99/64
[2018-05-03] MEDS: ASPIRIN 81 MG TABLET EC PO SCH (08:27)
[2018-05-03] MEDS: METHADONE 10 MG TABLET PO SCH ×2 (08:27→21:00)
[2018-05-03] MEDS: WARFARIN MODERAT DOSE PROTOCOL XX SCH (11:32)
[2018-05-03 12:09] VITALS: BP 105/65
[2018-05-03] MEDS ORDERED: WARFARIN 2.5 MG TABLET PO-COUM ONE (18:00)
[2018-05-03 18:56] VITALS: BP 94/62
[2018-05-03] MEDS: NICOTINE 14MG/24 HR PATCH.TD24 TD SCH (19:37)
[2018-05-03] MEDS ORDERED: METHADONE 5 MG TABLET ONE (20:54)
[2018-05-03] MEDS ORDERED: QUETIAPINE 25MG TABLET ONE (20:58)
[2018-05-03] MEDS: QUETIAPINE 100MG TABLET PO SCH (21:02)
[2018-05-04] MEDS: TEMAZEPAM 15 MG CAPSULE PO PRN (00:46)
[2018-05-04] MEDS: PIPERACILLIN/TAZO/PMX 2.25GM 50 ML IV SCH ×3 (02:07→14:28)
[2018-05-04] MEDS ORDERED: LINEZOLID 600 MG TABLET PO SCH (03:00)
[2018-05-04] MEDS: OXYcodone IR 5MG TABLET PO PRN ×3 (03:07→15:17)
[2018-05-04] MEDS: LINEZOLID PMX 600MG/300ML 300 ML IV SCH ×2 (03:07→15:25)
[2018-05-04 03:29] VITALS: BP 93/53
[2018-05-04 06:04] LABS: INTERNATIONAL NORMALIZED RATIO 2.38 (0.93-1.1); PROTHROMBIN TIME 24.4 Seconds (9.6-11.5)
[2018-05-04] MEDS: ASPIRIN 81 MG TABLET EC PO SCH (06:11)
[2018-05-04 06:45] VITALS: BP 93/59
[2018-05-04] MEDS ORDERED: METHADONE 5 MG TABLET ONE (08:44)
[2018-05-04] MEDS: METHADONE 10 MG TABLET PO SCH (08:48)
[2018-05-04 13:11] VITALS: BP 108/64
[2018-05-04] MEDS ORDERED: DOXY100T10 PO (13:42)
[2018-05-04] MEDS ORDERED: WARF5TAB PO (13:42)
[2018-05-04] MEDS ORDERED: AMOX1TAB64 PO (13:42)
[2018-05-04 16:14] VITALS: BP 100/61
[2018-05-04] MEDS ORDERED: WARFARIN 2 MG TABLET PO-COUM ONE (18:00)
== END 2018-05-04 18:04 | disposition home or self-care (01) | DRG 853 ==
LOC: ED 16:11 → EDIP 16:16 → ED 17:00 → 3NE 17:23 → EDIP 18:11 → CCU 21:00 → 4NOR 04-27 10:22
PROVIDERS: ADMIT Family Medicine; ATTEND Family Medicine
PROC: 02HV33Z Insertion of Infusion Device into Superior Vena Cava, Percutaneous Approach (ICD-10-PCS; 2018-04-20)
PROC: B548ZZA Ultrasonography of Superior Vena Cava, Guidance (ICD-10-PCS; 2018-04-20)
PROC: 02HV33Z Insertion of Infusion Device into Superior Vena Cava, Percutaneous Approach (ICD-10-PCS; 2018-04-26)
PROC: B548ZZA Ultrasonography of Superior Vena Cava, Guidance (ICD-10-PCS; 2018-04-26)
PROC: 0KBS0ZZ Excision of Right Lower Leg Muscle, Open Approach (ICD-10-PCS; principal; 2018-04-27 10:00)
DX: A41.9 Sepsis, unspecified organism (principal); E43 Unspecified severe protein-calorie malnutrition; R65.21 Severe sepsis with septic shock; D68.69 Other thrombophilia; F11.20 Opioid dependence, uncomplicated; L02.415 Cutaneous abscess of right lower limb; L03.115 Cellulitis of right lower limb; F31.9 Bipolar disorder, unspecified; F41.9 Anxiety disorder, unspecified; G89.29 Other chronic pain; Z88.8 Allergy status to other drugs, medicaments and biological substances; M72.9 Fibroblastic disorder, unspecified; J32.0 Chronic maxillary sinusitis; K75.9 Inflammatory liver disease, unspecified; M60.9 Myositis, unspecified; Z59.0 Homelessness; Z79.01 Long term (current) use of anticoagulants; Z91.14 Patient's other noncompliance with medication regimen; Z95.2 Presence of prosthetic heart valve; Z68.24 Body mass index [BMI] 24.0-24.9, adult; Z79.82 Long term (current) use of aspirin; Z79.899 Other long term (current) drug therapy; Z88.5 Allergy status to narcotic agent
CPT/HCPCS: 36415; 36569; 70450; 71045; 76700; 76937; 77001; 80048; 80053; 80074; 80307; 82533; 82550; 83036; 83605; 83735; 84100; 84145; 85025; 85520; 85610; 85730; 87015; 87040; 87070; 87075; 87081; 87116; 87205; 87206; 87806; 93306; 96365; 96372; 96375; 99285; A9585; G0378; J0295; J0883; J1170; J1644; J1885; J2020; J2250; J2543; J2704; J3010; J3370; Q9967; C1751; G0475; J3475; J7030; J7040; J7050